=== PATIENT | female | born 1995 | race Caucasian/White ===

== ENCOUNTER 2017-11-26 01:00 | Inpatient (IN) | payer MEDICAID ==
[2017-11-26] MEDS ORDERED: METHYLERGONOVINE 0.2 MG INJ IM ×2 (01:30→06:30)
[2017-11-26] MEDS ORDERED: MISOPROSTOL 200 MCG TAB PR ×2 (01:30→06:30)
[2017-11-26] MEDS ORDERED: IBUPROFEN 600 MG TAB PO (01:30)
[2017-11-26] MEDS ORDERED: MINERAL OIL LIGHT 10 ML VIAL TOP (01:30)
[2017-11-26] MEDS ORDERED: OXYTOCIN 30 UNITS/LR 500 ML IV ×3 (01:30→06:30)
[2017-11-26] MEDS ORDERED: CARBOPROST 250 MCG INJ IM ×2 (01:30→06:30)
[2017-11-26 01:57] LABS: ADD MAN DIFF? NO
[2017-11-26 02:00] LABS: BASOPHIL # 0.1 10^3/ul (0.0-0.1); BASOPHILS % 0.5 % (0.0-2.0); EOSINOPHILS # 0.1 10^3/ul (0.0-0.5); EOSINOPHILS % 0.6 % (0.0-7.0); HEMATOCRIT 40.3 % (37.0-47.0); HEMOGLOBIN 13.6 g/dl (12.0-16.0); LYMPHOCYTES # 2.5 10^3/ul (0.8-2.9); LYMPHOCYTES % 22.2 % (18.0-55.0); MEAN CORPUSCULAR HEMOGLOBIN 29.7 pg (29.0-33.0); MEAN CORPUSCULAR HGB CONC 33.7 g/dl (32.0-37.0); MEAN PLATELET VOLUME 11.8 fl (7.4-10.4); MONOCYTES % 8.7 % (0.0-13.0); NEUTROPHIL # 7.4 10^3/ul (1.6-7.5); NEUTROPHILS % 67.4 % (30.0-74.0); PLATELET COUNT 200 10^3/UL (140-415); RED BLOOD COUNT 4.58 10^6/ul (4.20-5.40); RED CELL DISTRIBUTION WIDTH 13.2 % (11.5-14.5)
[2017-11-26 02:20] LABS: INR 0.95; PROTIME 12.8 Sec (11.9-14.9)
[2017-11-26 02:21] LABS: PARTIAL THROMBOPLASTIN TIME 26.9 Sec (25.0-35.0)
[2017-11-26] MEDS: LACTATED RINGER'S 1,000 ML IV (04:00)
[2017-11-26] MEDS: BUTORPHANOL 2 MG INJ IV (04:00)
[2017-11-26 04:06] LABS: HEPATITIS B SURFACE ANTIGEN NEGATIVE (NEGATIVE)
[2017-11-26] MEDS: OXYTOCIN 30 UNITS/LR 500 ML IV ×3 (06:03→09:51)
[2017-11-26] MEDS: LIDOCAINE 1% (MPF) 30 ML INJ INJ (06:05)
[2017-11-26] MEDS: LACTATED RINGER'S 1,000 ML IV* ×3 (06:05→22:05)
[2017-11-26] MEDS: MINERAL OIL LIGHT 10 ML VIAL TOP (06:05)
[2017-11-26] MEDS ORDERED: HYDROCODONE/APAP (5/325) TAB PO (06:30)
[2017-11-26] MEDS: BENZOCAINE 20% 56 ML SPRAY TOP (09:49)
[2017-11-26] MEDS: LANOLIN 7 GM TUBE TOP (09:53)
[2017-11-26] MEDS: IBUPROFEN 600 MG TAB PO ×3 (12:00→23:45)
[2017-11-26 15:23] LABS: RAPID PLASMA REAGIN NONREACTIVE (NR)
[2017-11-27] MEDS: IBUPROFEN 600 MG TAB PO ×3 (06:00→20:30)
[2017-11-27] MEDS: LACTATED RINGER'S 1,000 ML IV* ×3 (06:05→22:05)
[2017-11-27 10:39] LABS: ADD MAN DIFF? NO
[2017-11-27 10:45] LABS: WHITE BLOOD COUNT 11.9 10^3/ul (4.8-10.8)
[2017-11-27 10:45] LABS: BASOPHIL # 0.1 10^3/ul (0.0-0.1); BASOPHILS % 0.5 % (0.0-2.0); EOSINOPHILS # 0.1 10^3/ul (0.0-0.5); EOSINOPHILS % 0.9 % (0.0-7.0); HEMATOCRIT 38.9 % (37.0-47.0); HEMOGLOBIN 12.8 g/dl (12.0-16.0); LYMPHOCYTES # 1.9 10^3/ul (0.8-2.9); LYMPHOCYTES % 16.1 % (18.0-55.0); MEAN CORPUSCULAR HEMOGLOBIN 29.2 pg (29.0-33.0); MEAN CORPUSCULAR HGB CONC 32.9 g/dl (32.0-37.0); MEAN CORPUSCULAR VOLUME 88.8 fl (72.0-104.0); MEAN PLATELET VOLUME 11.9 fl (7.4-10.4); MONOCYTE # 0.8 10^3/ul (0.3-0.9); MONOCYTES % 6.8 % (0.0-13.0); PLATELET COUNT 175 10^3/UL (140-415); RED BLOOD COUNT 4.38 10^6/ul (4.20-5.40); RED CELL DISTRIBUTION WIDTH 13.6 % (11.5-14.5)
[2017-11-28] MEDS: IBUPROFEN 600 MG TAB PO ×2 (05:49)
[2017-11-28] MEDS: DIPHTH/TET/ACEL PERTUSS (ADULT) 0.5 ML VIAL IM* (11:14)
== END 2017-11-28 15:20 | disposition home or self-care (01) | DRG 775 ==
LOC: L-D 01:00 → PP1 08:02
PROVIDERS: Obstetrics & Gynecology
PROC: 10E0XZZ Delivery of Products of Conception, External Approach (ICD-10-PCS; principal; 2017-11-26)
PROC: 0HQ9XZZ Repair Perineum Skin, External Approach (ICD-10-PCS; 2017-11-26)
PROC: 4A1HXCZ Monitoring of Products of Conception, Cardiac Rate, External Approach (ICD-10-PCS; 2017-11-26)
PROC: 3E0234Z Introduction of Serum, Toxoid and Vaccine into Muscle, Percutaneous Approach (ICD-10-PCS; 2017-11-28)
DX: O70.0 First degree perineal laceration during delivery (principal); Z3A.38 38 weeks gestation of pregnancy; Z37.0 Single live birth; Z23 Encounter for immunization
CPT/HCPCS: 76815; 85025; 85610; 85730; 86592; 86850; 86900; 86901; 87340; 99464